=== PATIENT | male | born 2000 | race American Indian/Alaskan Native ===

== ENCOUNTER 2019-12-17 01:09 | Emergency (ER) | payer SELFPAY ==
[2019-12-17 01:19] VITALS: BP 136/94
[2019-12-17] MEDS ORDERED: IBUPROFEN 800 MG TAB PO ONE (05:10)
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
== END 2019-12-17 05:49 | disposition home or self-care (01) ==
LOC: ED 01:09
DX: J06.9 Acute upper respiratory infection, unspecified (principal); K13.0 Diseases of lips; F17.200 Nicotine dependence, unspecified, uncomplicated; Z79.899 Other long term (current) drug therapy